=== PATIENT | female | born 1965 | race Caucasian/White ===

== ENCOUNTER 2016-08-04 20:27 | Emergency (ER) | payer OTHER ==
[2016-08-04] MEDS ORDERED: ACETAMINOPHEN 325 MG TAB PO ONE (21:00)
--- NOTE | 2016-08-04 21:17 | ED.PDOC ---
History of Present Illness - General Chief Complaint: Abdominal Pain Stated Complaint: abd pain and diarrhea Time Seen by Provider: 08/04/16 21:17 Source: patient - History of Present Illness Initial Comments: Ms. Alcira Collins 51 y/o female stated that her illness started with feeling of intermittent nausea 4 days ago slightly got better but yesterday had watery diarrhea,with abdominal cramps which got worse today ,no vomiting no ill contact no foreign travel.Has history of thyroid and urinary bladder cancer in remission stated had recent follow up for this. Timing/Duration: other - 4 days ago Improving Factors: nothing Worsening Factors: nothing Associated Symptoms: fever/chills, loss of appetite Allergies/Adverse Reactions: Allergies Penicillins Allergy (Verified 08/04/16 20:59) Sulfanilamide Allergy (Verified 08/04/16 20:59) Home Medications: Ambulatory Orders Probiotic Product [Align] 10.5 mg PO DAILY #30 chw 08/04/16 Promethazine HCl 50 mg PO TID PRN #20 tab 08/04/16 Review of Systems - Review of Systems Constitutional: States: fever EENTM: States: no symptoms reported Respiratory: States: no symptoms reported Cardiology: States: no symptoms reported Gastrointestinal/Abdominal: States: see HPI Genitourinary: States: no symptoms reported Musculoskeletal: States: no symptoms reported Skin: States: no symptoms reported Neurological: States: no symptoms reported Endocrine: States: no symptoms reported Hematologic/Lymphatic: States: no symptoms reported Past Medical History (General) - Patient Medical History Hx Thyroid Disease: Yes - Thyroid CA Hx Renal Disease: Yes - Bladder CA Hx Cancer: Yes - thyroid and bladder Hx Other PMH: - anxiety depression Surgical History: other Other Surgeries:: thyroid,urinary bladder , ,ear - Vaccination History Hx Tetanus, Diphtheria Vaccination: No Hx Influenza Vaccination: No Hx Pneumococcal Vaccination: No - Social History Hx Tobacco Use: No Hx Alcohol Use: Yes - occ - Activities of Daily Living Patient Lives Alone: No - with children Family Medical History - Family History Mother Family History: Unknown Hx Family Cancer: Yes - lung/brain-brothers Hx Family;Other: COPD Physical Exam - Physical Exam General Appearance: Alert, No apparent distress Eye Exam: bilateral normal Ears, Nose, Throat: hearing grossly normal, normal ENT inspection, normal pharynx Neck: non-tender, full range of motion, supple Respiratory: chest non-tender, lungs clear, normal breath sounds, no respiratory distress Cardiovascular/Chest: normal peripheral pulses, regular rate, rhythm, no edema, no gallop, no JVD, no murmur Peripheral Pulses: radial,right: 2+, radial,left: 2+ Gastrointestinal/Abdominal: normal bowel sounds, non tender, soft, no organomegaly Back Exam: normal inspection, no CVA tenderness, no vertebral tenderness Extremity: normal range of motion, non-tender, normal inspection, no pedal edema Neurologic: no motor/sensory deficits, alert, normal mood/affect, oriented x 3 Skin Exam: normal color, warm/dry, cyanosis Progress - Results/Orders Results/Orders: 08/04/16 21:19 CLOSTRIDIUM DIFFICILE AG/TOXIN Stat 08/04/16 21:35 COMPLETE METABOLIC PROFILE Stat 08/04/16 22:07 Chest,1 View [RAD] Stat 08/04/16 22:20 LACTIC ACID Stat Laboratory Results WBC 5.1 K/mm3 (4.8-10.8) 08/04/16 21:35 RBC 4.43 M/mm3 (4.20-5.40) 08/04/16 21:35 Hgb 13.4 gm/dL (12.0-16.0) 08/04/16 21:35 Hct 40.5 % (36.0-47.0) 08/04/16 21:35 MCV 91.5 fl (81.0-99.0) 08/04/16 21:35 MCH 30.2 pg (27.0-31.0) 08/04/16 21:35 MCHC 33.0 g/dL (33.0-37.0) 08/04/16 21:35 RDW 13.5 % (11.5-14.5) 08/04/16 21:35 Plt Count 143 K/mm3 (130-400) 08/04/16 21:35 MPV 7.4 fl (7.40-10.4) 08/04/16 21:35 Absolute Neuts (auto) 4.50 K/uL (1.8-6.8) 08/04/16 21:35 Absolute Lymphs (auto) 0.50 K/uL (1.0-3.4) L 08/04/16 21:35 Absolute Monos (auto) 0.10 K/uL (0.2-0.8) L 08/04/16 21:35 Absolute Eos (auto) 0.10 K/uL (0.0-0.4) 08/04/16 21:35 Absolute Basos (auto) 0.00 K/uL (0.0-0.1) 08/04/16 21:35 Neutrophils % 87.9 % (42.0-78.0) H 08/04/16 21:35 Lymphocytes % 9.2 % (20.0-50.0) L 08/04/16 21:35 Monocytes % 1.5 % (2.0-9.0) L 08/04/16 21:35 Eosinophils % 1.1 % (1.0-5.0) 08/04/16 21:35 Basophils % 0.3 % (0.0-2.0) 08/04/16 21:35 Sodium 140 mmol/L (135-145) 08/04/16 21:35 Potassium 3.1 mmol/L (3.6-5.0) L 08/04/16 21:35 Chloride 103 mmol/L (101-111) 08/04/16 21:35 Carbon Dioxide 30 mmol/L (21-31) 08/04/16 21:35 Anion Gap 10.1 (12-18) L 08/04/16 21:35 BUN 12 mg/dL (7-18) 08/04/16 21:35 Creatinine 0.75 mg/dL (0.6-1.3) 08/04/16 21:35 BUN/Creatinine Ratio 16.0 (10-20) 08/04/16 21:35 Random Glucose 114 mg/dL (70-105) H 08/04/16 21:35 Serum Osmolality 280.0 mOsm/L (275-295) 08/04/16 21:35 Calcium 7.7 mg/dL (8.4-10.2) L 08/04/16 21:35 Total Bilirubin 0.9 mg/dL (0.2-1.0) 08/04/16 21:35 AST 23 IU/L (10-42) 08/04/16 21:35 ALT 29 IU/L (10-60) 08/04/16 21:35 Alkaline Phosphatase 67 IU/L (42-121) 08/04/16 21:35 Serum Total Protein 7.2 gm/dL (6.4-8.2) 08/04/16 21:35 Albumin 4.1 g/dl (3.2-5.5) 08/04/16 21:35 Globulin 3.1 gm/dL (2.3-3.5) 08/04/16 21:35 Albumin/Globulin Ratio 1.3 (1.1-1.9) 08/04/16 21:35 Urine Color Yellow (Yellow) 08/04/16 21:45 Urine Appearance Clear (Clear) 08/04/16 21:45 Urine pH 6.5 (4.5-7.8) 08/04/16 21:45 Ur Specific [place] 1.010 (1.005-1.030) 08/04/16 21:45 Urine Protein Negative mg/dL 08/04/16 21:45 Urine Glucose (UA) Negative mg/dL (Negative) 08/04/16 21:45 Urine Ketones Negative mg/dL (NEGATIVE) 08/04/16 21:45 Urine Blood Negative (Negative) 08/04/16 21:45 Urine Nitrite Negative 08/04/16 21:45 Urine Bilirubin Negative (NEGATIVE) 08/04/16 21:45 Urine Urobilinogen 0.2 mg/dL (0.2-1.0) 08/04/16 21:45 Ur Leukocyte Esterase Negative (Negative) 08/04/16 21:45 Urine RBC 0 /hpf 08/04/16 21:45 Urine WBC 0-1 /hpf 08/04/16 21:45 Ur Epithelial Cells 10-20 /hpf 08/04/16 21:45 Urine Bacteria 0 08/04/16 21:45 08/04/16 21:19 CLOSTRIDIUM DIFFICILE AG/TOXIN Stat Laboratory Results WBC 5.1 K/mm3 (4.8-10.8) 08/04/16 21:35 RBC 4.43 M/mm3 (4.20-5.40) 08/04/16 21:35 Hgb 13.4 gm/dL (12.0-16.0) 08/04/16 21:35 Hct 40.5 % (36.0-47.0) 08/04/16 21:35 MCV 91.5 fl (81.0-99.0) 08/04/16 21:35 MCH 30.2 pg (27.0-31.0) 08/04/16 21:35 MCHC 33.0 g/dL (33.0-37.0) 08/04/16 21:35 RDW 13.5 % (11.5-14.5) 08/04/16 21:35 Plt Count 143 K/mm3 (130-400) 08/04/16 21:35 MPV 7.4 fl (7.40-10.4) 08/04/16 21:35 Absolute Neuts (auto) 4.50 K/uL (1.8-6.8) 08/04/16 21:35 Absolute Lymphs (auto) 0.50 K/uL (1.0-3.4) L 08/04/16 21:35 Absolute Monos (auto) 0.10 K/uL (0.2-0.8) L 08/04/16 21:35 Absolute Eos (auto) 0.10 K/uL (0.0-0.4) 08/04/16 21:35 Absolute Basos (auto) 0.00 K/uL (0.0-0.1) 08/04/16 21:35 Neutrophils % 87.9 % (42.0-78.0) H 08/04/16 21:35 Lymphocytes % 9.2 % (20.0-50.0) L 08/04/16 21:35 Monocytes % 1.5 % (2.0-9.0) L 08/04/16 21:35 Eosinophils % 1.1 % (1.0-5.0) 08/04/16 21:35 Basophils % 0.3 % (0.0-2.0) 08/04/16 21:35 Sodium 140 mmol/L (135-145) 08/04/16 21:35 Potassium 3.1 mmol/L (3.6-5.0) L 08/04/16 21:35 Chloride 103 mmol/L (101-111) 08/04/16 21:35 Carbon Dioxide 30 mmol/L (21-31) 08/04/16 21:35 Anion Gap 10.1 (12-18) L 08/04/16 21:35 BUN 13 mg/dL (7-18) 08/04/16 21:35 Creatinine 0.84 mg/dL (0.6-1.3) 08/04/16 21:35 BUN/Creatinine Ratio 15.5 (10-20) 08/04/16 21:35 Random Glucose 115 mg/dL (70-105) H 08/04/16 21:35 Serum Osmolality 280.4 mOsm/L (275-295) 08/04/16 21:35 Lactic Acid 1.0 mmol/L (0.5-2.2) 08/04/16 22:20 Calcium 7.7 mg/dL (8.4-10.2) L 08/04/16 21:35 Total Bilirubin 1.0 mg/dL (0.2-1.0) 08/04/16 21:35 AST 24 IU/L (10-42) 08/04/16 21:35 ALT 31 IU/L (10-60) 08/04/16 21:35 Alkaline Phosphatase 66 IU/L (42-121) 08/04/16 21:35 Serum Total Protein 7.3 gm/dL (6.4-8.2) 08/04/16 21:35 Albumin 3.9 g/dl (3.2-5.5) 08/04/16 21:35 Globulin 3.4 gm/dL (2.3-3.5) 08/04/16 21:35 Albumin/Globulin Ratio 1.1 (1.1-1.9) 08/04/16 21:35 Urine Color Yellow (Yellow) 08/04/16 21:45 Urine Appearance Clear (Clear) 08/04/16 21:45 Urine pH 6.5 (4.5-7.8) 08/04/16 21:45 Ur Specific [place] 1.010 (1.005-1.030) 08/04/16 21:45 Urine Protein Negative mg/dL 08/04/16 21:45 Urine Glucose (UA) Negative mg/dL (Negative) 08/04/16 21:45 Urine Ketones Negative mg/dL (NEGATIVE) 08/04/16 21:45 Urine Blood Negative (Negative) 08/04/16 21:45 Urine Nitrite Negative 08/04/16 21:45 Urine Bilirubin Negative (NEGATIVE) 08/04/16 21:45 Urine Urobilinogen 0.2 mg/dL (0.2-1.0) 08/04/16 21:45 Ur Leukocyte Esterase Negative (Negative) 08/04/16 21:45 Urine RBC 0 /hpf 08/04/16 21:45 Urine WBC 0-1 /hpf 08/04/16 21:45 Ur Epithelial Cells 10-20 /hpf 08/04/16 21:45 Urine Bacteria 0 08/04/16 21:45 - EKG/XRAY/CT XRAY: chest - no acute changes Departure - Departure Clinical Impression: Nausea, Diarrhea, Nonspecific syndrome suggestive of viral illness, Abdominal cramps Time of Disposition: 23:26 Disposition: Discharge to Home or Self Care Condition: Good Departure Forms: ED Discharge - Pt. Copy, Patient Portal Self Enrollment Instructions: DI for Viral Gastroenteritis -- Adult Prescriptions: Probiotic Product [Align] 10.5 mg PO DAILY #30 chw Promethazine HCl 50 mg PO TID PRN #20 tab PRN Reason: Nausea Home Medications: Ambulatory Orders Probiotic Product [Align] 10.5 mg PO DAILY #30 chw 08/04/16 Promethazine HCl 50 mg PO TID PRN #20 tab 08/04/16 Additional Instructions: AVOID SPICY/GREASY FOODS UNTIL BETTER;Follow up with primary md 08/09/2016 make appointment if really needed;Tylenol 500 mg by mouth every 6 hours for fever or Advil(OTC)-2 tablets every 6 hours.
[2016-08-04] MEDS ORDERED: PROMETHAZINE HCL INJ 25 MG/ML VIAL IM ONE (21:18)
[2016-08-04] MEDS ORDERED: LACTATED RINGERS 1,000 ML IVS ONE (21:18)
--- NOTE | 2016-08-04 22:35 | RAD ---
PROCEDURE: XR CHEST 1 VIEW HISTORY: fever COMPARISON: None TECHNIQUE: Single projection of the chest was done. FINDINGS: The lung roper are well inflated . There are no discrete airspace infiltrates, pneumothoraces or pleural effusions. The pulmonary vascularity is normal. The cardiomediastinal contour is unremarkable . IMPRESSION: There is no acute pleural-parenchymal process seen in the imaged lung roper. Location of Interpretation: [facility] Electronically signed by: Jerald Duran MD 08/04/2016 10:34 PM EDUCATIONAL PSYCHOLOGIST
[2016-08-04] MEDS ORDERED: MORPHINE SULFATE INJ 10 MG/ML VIAL IV ONE (23:27)
[2016-08-04] MEDS ORDERED: diphenhydrAMINE HCL 50 MG/ML VIAL IV ONE (23:30)
[2016-08-04] MEDS ORDERED: SODIUM CHLORIDE 0.9% 10 ML VIAL ONE (23:38)
[2016-08-05 00:31] VITALS: BP 118/72; TEMP 102.2; O2SAT 97
== END 2016-08-05 00:30 | disposition home or self-care (01) ==
LOC: ER 20:27
DX: R10.9 Unspecified abdominal pain (principal); R19.7 Diarrhea, unspecified; R11.0 Nausea; F41.8 Other specified anxiety disorders; Z88.0 Allergy status to penicillin; Z88.2 Allergy status to sulfonamides; Z85.850 Personal history of malignant neoplasm of thyroid; Z85.51 Personal history of malignant neoplasm of bladder; Z79.899 Other long term (current) drug therapy
CPT/HCPCS: 36415; 71010; 80053; 81001; 83605; 85025; 87502; J1200; J2270; J2550; J7120